=== PATIENT | female | born 1960 | race African-American/Black ===

== ENCOUNTER 2024-05-01 04:13 | Emergency (ER) | payer OTHER ==
[~2024-05-01] VITALS: Ht 172.7 cm; Wt 105.0 kg
[2024-05-01 04:34] VITALS: O2SAT 98
[2024-05-01 06:12] LABS: BASOPHILS % 0.7 % (0.0-2.0); CHLORIDE 107 mEq/L (98-107); HEMATOCRIT. 36.2 % (36.0-48.0); LYMPHOCYTES % 19.6 % (20.0-50.0); MEAN CORPUSCULAR HEMOGLOBIN 31.3 pg (28.0-32.0); MEAN CORPUSCULAR HGB CONC 33.2 g/dL (31.0-37.0); MEAN CORPUSCULAR VOLUME 94.3 fL (81.0-99.0); MEAN PLATELET VOLUME 6.7 fl (7.4-10.4); MONOCYTES % 9.3 % (2.0-8.0); NEUTROPHILS % 66.4 % (40.0-76.0); PLATELET 551 x1000/uL (130-400); POTASSIUM 3.5 mEq/L (3.5-5.1); RED BLOOD CELL COUNT 3.84 mill/uL (4.2-5.4); RED CELL DISTRIBUTION WIDTH 15.3 % (11.6-14.6); SODIUM 141 mEq/L (136-145)
[2024-05-01 06:13] LABS: CALCIUM 9.5 mg/dL (8.7-10.4); CARBON DIOXIDE 27 mEq/L (21-32); INR 1.7; PROTHROMBIN TIME 17.8 sec (9.6-11.0)
[2024-05-01 06:18] LABS: CREATININE 0.6 mg/dL (0.6-1.0); GLUCOSE 100 mg/dL (70-105); UREA NITROGEN BLOOD 5 mg/dL (9-23)
[2024-05-01 06:21] LABS: TROPONIN I HIGH SENSITIVITY < 4 ng/L (3.0-34)
[2024-05-01 11:19] VITALS: BP 98/53; PULSE 83; RESP 19; TEMP 36.66960; O2SAT 97
== END 2024-05-01 11:55 | disposition short-term general hospital (02) ==
LOC: ER 04:29 → CANBEDREQ 08:21 → ER 11:55
DX: R53.1 Weakness (principal); R40.0 Somnolence; I10 Essential (primary) hypertension; R60.0 Localized edema; Z85.9 Personal history of malignant neoplasm, unspecified; Z20.822 Contact with and (suspected) exposure to COVID-19
CPT/HCPCS: 80048; 83880; 85025; 85610; 84484; 36415; 71045; 99285; 87426; Z7610